=== PATIENT | male | born 1950 | race Caucasian/White ===

== ENCOUNTER → 2022-06-08 09:39 | Outpatient (CLI) | payer OTHER, SELFPAY ==
--- NOTE | 2022-06-08 | DI.RAD.S_ITS ---
PROCEDURE: XR THORACIC SPINE 3V INDICATIONS: Unspecified osteoarthritis, unspecified site TECHNIQUE: 3 views of the thoracic spine were acquired. COMPARISON: [facility], CR, XR LUMBAR SPINE 2 OR 3 VIEWS, 07/31/2020, 15:35. [facility], MR, MR LUMBAR SPINE WITHOUT CONTRAST, 10/19/2021, 10:43. [facility], CR, XR LUMBAR SPINE 2-3V, 06/08/2022, 9:49. FINDINGS: Bones: Mild chronic compression fracture of L1. No suspicious bony lesions. Mild degenerative disc disease at T6-T7, T7-T8, T8-T9, T10-T11 and T11-T12. 12 pairs of ribs are noted, and appear intact where visualized. Soft tissues: No paravertebral stripe thickening. IMPRESSION: 1. Mild chronic compression fracture of L1. 2. Mild degenerative disc disease in thoracic spine. Dictated by: Charles Templeton M.D. on 06/08/2022 at 14:03 Approved by: Charles Templeton M.D. on 06/08/2022 at 14:05
--- NOTE | 2022-06-08 | DI.RAD.S_ITS ---
PROCEDURE: XR LUMBAR SPINE 2-3V INDICATIONS: Unspecified osteoarthritis, unspecified site TECHNIQUE: 3 views of the lumbar spine were acquired. COMPARISON: None. FINDINGS: Bones: 5 [id number] vertebrae are present. There is mild levoscoliosis. Grade 1 retrolisthesis of L2 on L3 and L3 on L4. Mild superior endplate depression of L1. No suspicious bony lesions. Degenerative disc disease, severe at L2-L3, L3-L4 and L4-L5. Severe facet arthropathy at L2-L3, L3-L4 and L4-L5, and moderate facet arthropathy at L5-S1. Soft tissues: Overlying bowel gas pattern is normal. Severe atherosclerotic calcifications. IMPRESSION: 1. Severe degenerative disc and facet disease. 2. Mild central depression of L1 compatible with mild compression fracture of indeterminate chronicity. Dictated by: Charles Templeton M.D. on 06/08/2022 at 13:54 Approved by: Charles Templeton M.D. on 06/08/2022 at 14:02
== END ==
PROVIDERS: Referring Provider Chiropractor; Visit Provider Chiropractor
DX: M51.34 Other intervertebral disc degeneration, thoracic region (principal); M51.36 Other intervertebral disc degeneration, lumbar region; M47.816 Spondylosis without myelopathy or radiculopathy, lumbar region; M47.817 Spondylosis without myelopathy or radiculopathy, lumbosacral region; M48.56XS Collapsed vertebra, not elsewhere classified, lumbar region, sequela of fracture; M19.90 Unspecified osteoarthritis, unspecified site
CPT/HCPCS: 72072; 72100

== ENCOUNTER → 2023-05-11 | Outpatient (CLI) | payer MEDICARE, OTHER, SELFPAY ==
--- NOTE | 2023-05-11 09:06 | DI.US.S_ITS ---
PROCEDURE: US ARTERIAL DUPLEX LE BI INDICATIONS: chest pain TECHNIQUE: Color and pulse Doppler interrogation was performed of both lower extremity arterial systems, with image documentation. COMPARISON: None. FINDINGS: Right lower extremity: Common femoral artery: 134 cm/sec, with triphasic flow. Deep femoral artery: 128 cm/sec, with triphasic flow. Proximal superficial femoral artery: 112 cm/sec, with triphasic flow. Mid superficial femoral artery: 103 cm/sec, with triphasic flow. Distal superficial femoral artery: 65 cm/sec, with triphasic flow. Popliteal artery: 62 cm/sec, with triphasic flow. Posterior tibial artery: 57 cm/sec, with triphasic flow. Anterior tibial artery/dorsalis pedis: 69 cm/sec, with triphasic flow. Snider-scale imaging description: Mild atheromatous plaque scattered throughout the right lower extremity arteries. No focal hemodynamically significant stenosis. Left lower extremity: Common femoral artery: 153 cm/sec, with triphasic flow. Deep femoral artery: To 0 6 cm/sec, with biphasic flow. Proximal superficial femoral artery: 119 cm/sec, with triphasic flow. Mid superficial femoral artery: 83 cm/sec, with triphasic flow. Distal superficial femoral artery: 62 cm/sec, with triphasic flow. Popliteal artery: 90 cm/sec, with triphasic flow. Posterior tibial artery: 103 cm/sec, with triphasic flow. Anterior tibial artery/dorsalis pedis: 100 cm/sec, with triphasic flow. Snider-scale imaging description: Dense atheromatous calcifications are present in the left common femoral artery. However, the vessel remains patent with triphasic waveforms present. IMPRESSION: 1. Overall triphasic waveforms bilaterally. 2. Stenosis within the left common femoral artery secondary to atheromatous calcifications. Given the history of claudication, this may be the etiology of the patient's symptoms. If further characterization is warranted, CTA with lower extremity runoff could be used to further characterize this finding and evaluate for possible therapeutic intervention. Dictated by: Elayne Berry M.D. on 05/11/2023 at 12:09 Approved by: Elayne Berry M.D. on 05/11/2023 at 12:13
--- NOTE | 2023-05-12 00:41 | DI.NM.S_ITS ---
DATE OF SERVICE: 05/11/2023 PROCEDURE: Exercise treadmill stress and rest myocardial perfusion imaging with gating to assess ejection fraction and regional wall motion. ORDERING PROVIDER: Romel aFlcon MD INDICATIONS: The patient is a 73-year-old male with atypical chest discomfort, multiple risk factors for coronary disease, and mild aortic stenosis. CARDIAC STRESS: The patient was able to exercise for a total of 5 minutes, 18 seconds on a modified Johnny protocol used because of his inability to keep up with the treadmill on a standard protocol. He had an accelerated heart rate response, achieving a maximum heart rate of 165 BPM (111% of his predicted maximum) but a normal blood pressure response with a resting blood pressure of 140/80, increasing to a maximum 178/70 at peak exercise. He had no chest discomfort or other anginal symptoms but had significant limiting dyspnea. His resting ECG shows sinus rhythm with poor R-wave progression but normal ST segments. With stress, there are no significant ST-segment shifts and only occasional isolated PVCs without complex ectopy. At 3 minutes, 50 seconds of exercise at a heart rate of 136 BPM, 25.9 millicuries of technetium-99m Myoview was injected and he was imaged 15 minutes later using a gated SPECT acquisition protocol. Earlier in the day, he had been injected with 12.1 millicuries of technetium-99m Myoview while at rest and was imaged 20 minutes later, again using a gated SPECT acquisition protocol. FINDINGS: 1. Raw data. There is fair myocardial tracer uptake. The lung/heart ratio is significantly elevated at 0.58, which can be a sign of pulmonary congestion. His TID ratio is normal at 0.87. 2. Quantitated gated SPECT: Post-stress ejection fraction is estimated at 67% without any focal wall motion abnormality. Resting ejection fraction is 63% with a moderately increased end-diastolic volume of 169 mL. 3. Myocardial perfusion imaging: Post-stress supine images show a fairly normal myocardial perfusion pattern with a slight defect at the base of the inferior wall, consistent with diaphragmatic attenuation, and a small, subtle defect in the distal anteroapex, possibly reflecting chest wall attenuation. Both defects resolve on the prone images, revealing a normal, homogeneous perfusion pattern without any perfusion defects. The resting images show a similar perfusion pattern although the apical defect improves slightly. IMPRESSION: 1. Probable normal myocardial perfusion study for ischemia. 2. Subtle, fixed proximal inferior defect that resolves on prone imaging, consistent with diaphragmatic attenuation artifact. There is also a small, subtle, partially reversible defect at the anteroapex that resolves on prone imaging, likely reflecting chest wall attenuation artifact, although a small volume of ischemia cannot be entirely excluded. There is no compelling evidence for any significant myocardial ischemia or previous myocardial infarction. 3. Normal left ventricular systolic function without focal abnormality but moderately increased left ventricular volumes. The lung/heart ratio is significantly increased, suggesting possible pulmonary congestion but clinical correlation is needed. 4. Markedly reduced exercise capacity with limiting dyspnea but no angina or significant ST-segment shifts or arrhythmias with stress. JordanElpidio lozano - HERNAN/madeleine/ec doc#: [id number]/job#: [id number] dd: 05/11/2023 16:12:00 dt: 05/11/2023 23:59:00 DICTATING MD/COPIES TO: Esequiel Lee MD; Romel Falcon MD COPIES MNE: GÉNESIS;
== END ==
LOC: NUCM 09:05
PROVIDERS: Referring Provider Internal Medicine Cardiovascular Disease; Visit Provider Internal Medicine Cardiovascular Disease
DX: I70.212 Atherosclerosis of native arteries of extremities with intermittent claudication, left leg (principal); I44.7 Left bundle-branch block, unspecified; I35.0 Nonrheumatic aortic (valve) stenosis; R07.89 Other chest pain; E78.5 Hyperlipidemia, unspecified; R53.83 Other fatigue
CPT/HCPCS: 78452; 93017; 93925; A9502

== ENCOUNTER → 2024-12-11 12:26 | Outpatient (CLI) | payer MEDICARE, OTHER, SELFPAY ==
--- NOTE | 2024-12-11 12:28 | DI.ECHO.S_ITS ---
[facility]+ [facility] : : [address] : : [place] : : [id number] : : Phone: [phone] Echocardiogram Report + + :Name: GERMÁN CHRISTOPHER Study Date: 12/11/2024 Height: 69 in : :Hospital ReadingLocation: Weight: 175 lb : : Gender: Male BSA: 2.0 m2 : :: 1950 Age: 74 yrs BP: 118/60 mmHg: :Reason For Study: MORDERATE AORTIC VALVE STENOSIS : :Ordering Physician: CAM TORIBIO Performed By: Lizett Aquino : :Referring: STEVE HONG MD : + + Interpretation Summary The left ventricle is normal in size. The left ventricular ejection fraction is normal. The ejection fraction is estimated to be 55-60%. The right ventricle is at the upper limits of normal in size. The right ventricular systolic function is normal. There is mild mitral regurgitation. The aortic valve is trileaflet. The aortic valve is moderately calcified. The peak aortic velocity is 3.28 m/sec. The aortic valve mean gradient is 26 mmHg. The calculated aortic valve area is 1.3 cm2. There is moderate aortic stenosis. The IVC is of normal diameter and collapses greater than 50% with a sniff. This suggests a low right atrial pressure of 3 mm Hg. Mild atherosclerotic plaque(s) in the aortic arch. Procedure: A two-dimensional transthoracic echocardiogram with color flow and Doppler was performed. The study quality was technically adequate. There is no prior echocardiogram noted for this patient. The patient was in sinus rhythm with heart rates between 61-74 bpm during the exam. The patient had a bundle branch block rhythm during the exam. Left Ventricle: The left ventricle is normal in size. There is normal left ventricular wall thickness. There is no thrombus. The ejection fraction is estimated to be 55-60%. The left ventricular ejection fraction is normal. There are no focal wall motion abnormalities. Grade I diastolic dysfunction with normal left atrial pressure. Right Ventricle: The right ventricle is at the upper limits of normal in size. The right ventricular systolic function is normal. Atria: The left atrium is moderately dilated. Right atrial size is normal. There is no Doppler evidence for an interatrial shunt. Mitral Valve: The mitral valve chordae are thickened and/or calcified. There is mild to moderate mitral annular calcification. There is mild mitral regurgitation. Aortic Valve: The aortic valve is trileaflet. The aortic valve is moderately calcified. There is moderately reduced leaflet mobility. The peak aortic velocity is 3.28 m/sec. The aortic valve mean gradient is 26 mmHg. The calculated aortic valve area is 1.3 cm2. There is moderate aortic stenosis. There is trace aortic regurgitation. Tricuspid Valve: The tricuspid valve leaflets are thin and pliable. There is trace tricuspid regurgitation. The right ventricular systolic pressure is estimated to be at least 27 mmHg based on an estimated right atrial pressure of 3 mm Hg. Pulmonic Valve: The pulmonic valve leaflets are thin and pliable; valve motion is normal. There is mild pulmonic regurgitation. Great Vessels: The aortic root is normal size. There is aortic root sclerosis/calcification. The dimensions of the ascending aorta are normal. Mild atherosclerotic plaque(s) in the aortic arch. The IVC is of normal diameter and collapses greater than 50% with a sniff. This suggests a low right atrial pressure of 3 mm Hg. Pericardium/ Pleura There is no pericardial effusion. There is no pleural effusion. MMode/2D Measurements & Calculations LVIDd: 5.0 cm LVOT diam: 2.2 cm LVIDs: 3.6 cm Ao root diam: 3.1 cm FS: 27.6 % asc Aorta Diam: 3.5 cm IVSd: 0.66 cm Ao Arch Diam (Prox Trans): 2.9 cm LVPWd: 0.87 cm LV palmer. diameter/BSA (cm/m^2): 2.5 LV sys. diameter/BSA (cm/m^2): 1.8 LA A2 area: 25.6 cm2 RA long axis: 5.6 cm LA A4 area: 20.3 cm2 RA area: 16.8 cm2 LA length (vol): 5.3 cm RA vol: 42.7 ml LA vol: 82.9 ml RA : 21.9 ml/m2 LA vol index: 42.5 ml/m2 IVC diam: 1.9 cm RVD1 (basal): 4.1 cm RVD2 (mid): 3.5 cm TAPSE: 2.5 cm Doppler Measurements & Calculations Ao V2 max: 328.1 cm/sec LVOT Max Marlo: 108.8 cm/sec Ao V2 mean: 238.0 cm/sec LV V1 max P.7 mmHg Ao max P.2 mmHg LV V1 VTI: 25.4 cm Ao mean P.9 mmHg AMADEO(I,D): 1.4 cm2 Ao V2 VTI: 72.5 cm AMADEO(V,D): 1.3 cm2 sev ratio: 0.35 AMADEO indexed to BSA (cm^2/m^2): 0.71 MV E max marlo: 93.6 cm/sec TR max marlo: 243.4 cm/sec MV A max marlo: 128.6 cm/sec TR max P.7 mmHg MV E/A: 0.73 PA V2 max: 136.8 cm/sec Med Peak E' Marlo: 7.5 cm/sec PA V2 mean: 83.4 cm/sec E/E' med: 12.5 PA mean P.3 mmHg Lat Peak E' Marlo: 9.0 cm/sec PA pr(Accel): 31.5 mmHg E/E' lat: 10.3 E/e' average: 11.4 MV dec time: 0.31 sec MVA(VTI): 2.3 cm2 MV V2 mean: 95.3 cm/sec SV(LVOT): 100.2 ml MV mean P.1 mmHg MV V2 VTI: 43.5 cm Reading Physician:[id number] PM
== END ==
LOC: ECHO 12:27
PROVIDERS: PCP Internal Medicine; Referring Provider Internal Medicine; Visit Provider Internal Medicine
DX: I35.0 Nonrheumatic aortic (valve) stenosis (principal); I34.81 Nonrheumatic mitral (valve) annulus calcification; I34.0 Nonrheumatic mitral (valve) insufficiency
CPT/HCPCS: 93306